=== PATIENT | male | born 1960 | race African-American/Black ===

== ENCOUNTER 2017-01-02 21:17 | Emergency (ER) | payer MEDICAID ==
[~2017-01-02] VITALS: Ht 170.2 cm; Wt 82.0 kg
[2017-01-02] MEDS ORDERED: FAMOTIDINE 20MG/2ML VIAL IV SCH (22:45)
[2017-01-02] MEDS ORDERED: ONDANSETRON HCL 4MG/2ML VIAL IV STA (22:45)
[2017-01-02] MEDS ORDERED: SODIUM CHLORIDE 0.9% 1,000 ML IV ONE (22:45)
[2017-01-02] MEDS ORDERED: FAMOTIDINE 20MG/2ML VIAL IV NR (23:15)
[2017-01-02 23:18] LABS: HEMATOCRIT. 45.9 % (42.0-52.0); HEMOGLOBIN. 15.9 g/dL (14.0-18.0); MEAN CORPUSCULAR HEMOGLOBIN 32.2 pg (28.0-32.0); MEAN CORPUSCULAR VOLUME 93.1 fL (80.0-94.0); MEAN PLATELET VOLUME 8.4 fl (7.4-10.4); PLATELET 265 x1000/uL (130-400); RED BLOOD CELL COUNT 4.93 mill/uL (4.7-6.1); RED CELL DISTRIBUTION WIDTH 14.1 % (11.6-14.6)
[2017-01-02 23:24] LABS: CHLORIDE 101 mEq/L (98-107)
[2017-01-02 23:28] LABS: PROTHROMBIN TIME 10.4 sec (9.4-11.6)
[2017-01-02 23:35] LABS: CARBON DIOXIDE 27 mEq/L (21-32); TROPONIN I < 0.02 ng/mL (0.00-0.04)
[2017-01-03 02:26] VITALS: BP 144/90
[2017-01-03 06:32] LABS: ATYPICAL LYMPHOCYTES 1; PLATELET ESTIMATE NORMAL
[2017-01-03] MEDS ORDERED: [UNRECOGNIZED DRUG - OTHER] PO (22:24)
[2017-01-03] MEDS ORDERED: METO25TA6 PO (22:36)
[2017-01-03] MEDS ORDERED: ATORVASTATIN (22:36)
== END 2017-01-03 02:29 | disposition home or self-care (01) ==
LOC: ER 21:52
DX: R10.13 Epigastric pain (principal); R11.2 Nausea with vomiting, unspecified; R00.0 Tachycardia, unspecified; R73.9 Hyperglycemia, unspecified; I10 Essential (primary) hypertension; I25.10 Atherosclerotic heart disease of native coronary artery without angina pectoris; Z95.5 Presence of coronary angioplasty implant and graft; I25.2 Old myocardial infarction
CPT/HCPCS: 36415; 71010; 74000; 80048; 83690; 83880; 84484; 85025; 85610; 93005; 96361; 96374; 96375; 99285; J2405; J3490; J7030; Z7610

== ENCOUNTER 2017-03-26 15:53 | Emergency (ER) | payer MEDICAID ==
[~2017-03-26] VITALS: Ht 170.2 cm; Wt 72.0 kg
[~2017-03-26 15:53] MED LIST: ATORVASTATIN; METO25TA6 PO; [UNRECOGNIZED DRUG - OTHER] PO
[2017-03-26] MEDS ORDERED: SODIUM CHLORIDE 0.9% 1,000 ML IV ONE (18:30)
[2017-03-26 18:53] LABS: BASOPHILS % 0.3 % (0.0-2.0); EOSINOPHILS % 1.6 % (0.0-5.0); HEMATOCRIT. 39.3 % (42.0-52.0); HEMOGLOBIN. 13.1 g/dL (14.0-18.0); LYMPHOCYTES % 34.6 % (20.0-50.0); MEAN CORPUSCULAR HEMOGLOBIN 31.5 pg (28.0-32.0); MEAN CORPUSCULAR VOLUME 94.3 fL (80.0-94.0); MEAN PLATELET VOLUME 7.3 fl (7.4-10.4); MONOCYTES % 8.3 % (2.0-8.0); NEUTROPHILS % 55.2 % (40.0-76.0); PLATELET 312 x1000/uL (130-400); RED BLOOD CELL COUNT 4.17 mill/uL (4.7-6.1)
[2017-03-26 19:01] LABS: CHLORIDE 108 mEq/L (98-107); ETHANOL BLOOD 59 mg/dL
[2017-03-26 22:10] VITALS: BP 101/67
[2017-03-26] MEDS ORDERED: POTASSIUM CHLORIDE 20MEQ TABLET SR PO ONE (22:45)
== END 2017-03-26 23:17 | disposition home or self-care (01) ==
LOC: ER 16:11
DX: F10.129 Alcohol abuse with intoxication, unspecified (principal); E11.9 Type 2 diabetes mellitus without complications; I10 Essential (primary) hypertension; I25.2 Old myocardial infarction; Z93.3 Colostomy status; Y92.480 Sidewalk as the place of occurrence of the external cause
CPT/HCPCS: 36415; 80048; 85025; 96360; 99284; G0482; J7030; Z7610